=== PATIENT | male | born 1975 | race African-American/Black ===

== ENCOUNTER 2018-01-07 15:21 | Inpatient (IN) | payer SELFPAY ==
--- NOTE | 2018-01-07 16:06 | RAD REPORT ---
EXAM DESCRIPTION: Matthew Single View01/07/2018 4:00 pm CLINICAL HISTORY: sob COMPARISON: none FINDINGS: The lungs appear clear of acute infiltrate. The heart is probably upper limits normal siz e IMPRESSION: No acute abnormalities displayed
--- NOTE | 2018-01-07 16:25 | EKG ---
Test Date: 2018-01-07 Test Time: 15:55:11 Frame Table Operator Helper: JASPER MEASUREMENT RESULTS: Intervals: Rate: 112 OK: 146 QRSD: 84 QT: 302 QTc: 412 [place]: P: 47 OK: 146 QRS: 3 T: 112 INTERPRETIVE STATEMENTS: Sinus tachycardia Possible Left atrial enlargement Left ventricular hypertrophy T wave abnormality, consider lateral ischemia Abnormal ECG Compared to ECG 02/28/2017 10:22:04 Sinus rhythm no longer present T-wave abnormality still present Possible ischemia still present Electronically Signed On 01-07-18 16:24:10 CDT by Antonio Bonner
[2018-01-07 16:29] LABS: Absolute Lymphocytes (CBC) 1.8 K/uL (0.7-4.9); Absolute Monocytes 1.4 K/uL (0.1-1.3); Absolute Neutrophil 15.2 K/uL (1.8-8.0); Basophils % 0.5 % (0-1.3); Eosinophils % 0.5 % (0-4.4); Hematocrit 40.9 % (39.6-49.0); Lymphocytes % 9.8 % (15.3-44.8); MCH 31.9 pg (27.0-35.0); MCV 96.8 fL (80-100); MPV 7.9 fL (7.6-11.3); Monocytes % 7.6 % (3.3-12.3); RBC Red Blood Cell Count 4.23 M/uL (4.33-5.43)
[2018-01-07 16:34] LABS: Protime INR 1.22
--- NOTE | 2018-01-07 16:37 | RAD REPORT ---
EXAM DESCRIPTION: MAYKELExtrelena Venous Uni Ltd3 4:29 pm CLINICAL HISTORY: left leg pain and swelling. COMPARISON: None. FINDINGS: Left common femoral, superficial femoral, popliteal and posterior tibial veins are compre ssible and demonstrate augmentation. Doppler demonstrates good flow. IMPRESSION: No evidence of deep venous thrombosis involving the left lower extremity.
[2018-01-07 16:55] LABS: Bicarbonate 23 mEq/L (21-31); Glucose Level 103 mg/dL (65-120); Potassium 3.3 mEq/L (3.6-5.0); Sodium Level 134 mEq/L (135-145)
[2018-01-07 16:59] LABS: CKMB Creatine Kinase MB 1.8 ng/ml (0.3-4.0)
[2018-01-07 17:02] LABS: ALT/SGPT 19 IU/L (10-60); AST/SGOT 19 IU/L (10-42); Albumin 3.9 g/dL (3.2-5.5); Alkaline Phosphatase 65 IU/L (42-121); BUN Blood Urea Nitrogen 12 mg/dL (6-20); Bilirubin Direct 0.2 mg/dL (0-0.2); Bilirubin Total 1.2 mg/dL (0.3-1.2); Creatine Phosphokinase 109 IU/L (22-269); Magnesium 1.5 mg/dL (1.8-2.5); Protein, Total 7.9 g/dL (6.0-8.3)
[2018-01-07] MEDS ORDERED: NA CHLORIDE 0.9% 1,000 ML ONE (17:06)
[2018-01-07] MEDS ORDERED: PIPER/TAZO/NS 3.375gm 3.375 GM/100 ML BAG IV ONE (17:15)
[2018-01-07] MEDS ORDERED: VANCOMYCIN/NS 1 gm 1 GM/250 ML BAG ONE ×2 (17:21→23:06)
--- NOTE | 2018-01-07 17:27 | EDPHYS ---
Physician Documentation [facility] Name: Tariq Francisco Jr Age: 42 yrs Sex: Male : 1975 Arrival Date: 01/07/2018 Time: 15:28 Bed 8 Private MD: ED Physician Floyd Harvey HPI: 01/07 17:52 This 42 yrs old Black Male presents to ER via Ambulatory with complaints of Left Lower pm1 Leg Swelling. 17:52 The patient presents with cellulitis of the left lower leg, the patient presents with a pm1 swollen area of the left lower leg. Description: erythematous, hot, swollen. Onset: The symptoms/episode began/occurred 3 day(s) ago. Possible cause(s): unknown, history of cellulitis to lower extremities. Reports occurrence 2-3 per year for the past 20 years. Associated signs and symptoms: Pertinent positives: Chills. Subjective fevers, Pertinent negatives: discharge, drainage. Modifying factors: the symptoms are alleviated by nothing, the symptoms are aggravated by nothing. Severity of symptoms: in the emergency department the symptoms are actually worse. The patient has experienced similar episodes in the past, multiple times, and the symptoms today are exactly the same, to previous cellulitis of lower extremities. The patient has been recently seen by a physician: with similar presenting complaints, was given a prescription for pain medications, was given a prescription for antibiotics, Seen at [place] [facility] and prescribed medications at onset of symptoms 3 days ago but he did not get any of the medications filled. Patient presents to the ER with complaints of left lower extremity swelling and pain. Onset 3 days ago with subjective fevers and chills. Patient was seen three days ago at [place] for the same complaint and prescribed medications. He did not fill the medications. Patient reports prior to onset of his cellulitis he gets generalized body aches that typically start in the lower back. Muscle soreness present to neck also.. Historical: - Allergies: 15:29 No Known Allergies; lk1 - PMHx: 15:29 Hypertension; Diabetes - NIDDM; lk1 - PSHx: 15:29 None; lk1 - Immunization history:: Adult Immunizations up to date. - Social history:: Smoking status: Patient uses tobacco products, cigars. ROS: 17:52 Eyes: Negative for injury, pain, redness, and discharge, ENT: Negative for injury, pm1 pain, and discharge, Neck: Negative for injury, pain, and swelling. 17:52 Abdomen/GI: Negative for abdominal pain, nausea, vomiting, diarrhea, and constipation. 17:52 : Negative for injury, bleeding, discharge, and swelling, MS/Extremity: Negative for injury and deformity. 17:52 Neuro: Negative for headache, weakness, numbness, tingling, and seizure. 17:52 Constitutional: Positive for body aches, chills, fever. 17:52 Cardiovascular: Positive for chest pain, with cough, of the mid-sternal area, Negative for palpitations. 17:52 Respiratory: Positive for shortness of breath, occasionally on exertion walking upstairs. None at rest, Negative for cough, sputum production, wheezing. 17:52 Back: Positive for of the low back area, Pain, Negative for injury or acute deformity, decreased range of motion, radiated pain. 17:52 Skin: Positive for erythema, swelling, of the left lower leg, pain. Exam: 17:52 Constitutional: This is a well developed, well nourished patient who is awake, alert, pm1 and in no acute distress. Head/Face: Normocephalic, atraumatic. Eyes: Pupils equal round and reactive to light, extra-ocular motions intact. Lids and lashes normal. Conjunctiva and sclera are non-icteric and not injected. Cornea within normal limits. Periorbital areas with no swelling, redness, or edema. ENT: Nares patent. No nasal discharge, no septal abnormalities noted. Tympanic membranes are normal and external auditory canals are clear. Oropharynx with no redness, swelling, or masses, exudates, or evidence of obstruction, uvula midline. Mucous membranes moist. 17:52 Respiratory: Lungs have equal breath sounds bilaterally, clear to auscultation and percussion. No rales, rhonchi or wheezes noted. No increased work of breathing, no retractions or nasal flaring. Abdomen/GI: Soft, non-tender, with normal bowel sounds. No distension or tympany. No guarding or rebound. No evidence of tenderness throughout. Back: No spinal tenderness. No costovertebral tenderness. Full range of motion. 17:52 MS/ Extremity: Pulses equal, no cyanosis. Neurovascular intact. Full, normal range of motion. 17:52 Neck: External neck: is normal, C-spine: vertebral tenderness, is not appreciated, ROM/movement: is normal, Meningeal signs: are not present, Kernig's sign is negative, Brudzinski's sign is negative, nuchal rigidity, is not appreciated. 17:52 Chest/axilla: Palpation: crepitus, is not appreciated, tenderness, of the mid-sternal area, that totally reproduces the patient's complaints. 17:52 Cardiovascular: Rate: tachycardic, actual rate is 105 bpm, Rhythm: regular, Pulses: no pulse deficits are appreciated, Heart sounds: normal, JVD: is not appreciated. 17:52 Skin: cellulitis, circumferential cellulitis present to left lower extremity from ankle to just below knee. 17:52 Neuro: Orientation: is normal, Mentation: is normal, Motor: moves all fours, Sensation: is normal, no obvious gross deficits. Vital Signs: 15:30 BP 146 / 89; Pulse 112; Resp 16; Temp 100.0(O); Pulse Ox 99% on R/A; Weight 127.01 kg lk1 (R); Height 5 ft. 10 in. (177.80 cm) (R); Pain 8/10; 16:00 BP 151 / 83; Pulse 105; Resp 18 S; Pulse Ox 99% on R/A; Pain 8/10; jl7 16:54 BP 150 / 92; Pulse 100; Resp 20 S; Pulse Ox 100% on R/A; jl7 18:00 BP 133 / 74; Pulse 101; Resp 16; Temp 99.7; Pulse Ox 100% ; jl7 18:49 BP 148 / 92; Pulse 92; Resp 18 S; Pulse Ox 99% on R/A; jl7 19:10 BP 143 / 91; Pulse 91; Resp 18; Pulse Ox 100% on R/A; Pain 0/10; ao 20:20 BP 148 / 85; Pulse 83; Resp 17 S; Pulse Ox 98% on R/A; jd3 15:30 Body Mass Index 40.18 (127.01 kg, 177.80 cm) lk1 MDM: 15:37 Patient medically screened. pm1 17:25 Data reviewed: vital signs. Data interpreted: Pulse oximetry: on room air is 100 %. pm1 Interpretation: normal. Counseling: I had a detailed discussion with the patient and/or guardian regarding: the historical points, exam findings, and any diagnostic results supporting the discharge/admit diagnosis, lab results, radiology results, the need for further work-up and treatment in the hospital. 17:25 Physician consultation: Gabino Nolan MD was called at 17:26, was contacted at 17:26, pm1 regarding admission, patient's condition, and will see patient. 01/07 15:47 Order name: Ckmb; Complete Time: 17:03 pm01/07 15:47 Order name: CPK; Complete Time: 17:03 pm01/07 15:47 Order name: Basic Metabolic Panel; Complete Time: 17:03 pm01/07 15:47 Order name: BNP; Complete Time: 17:03 pm01/07 15:47 Order name: CBC with Diff; Complete Time: 16:43 pm01/07 15:47 Order name: LFT's; Complete Time: 17:03 pm01/07 15:47 Order name: Magnesium; Complete Time: 17:03 pm01/07 15:47 Order name: PT-INR; Complete Time: 16:43 pm01/07 15:47 Order name: Ptt, Activated; Complete Time: 16:43 pm01/07 15:47 Order name: Troponin (emerg Dept Use Only); Complete Time: 17:03 pm01/07 15:47 Order name: XRAY Chest (1 view); Complete Time: 16:28 pm01/07 15:47 Order name: Blood Culture Adult (2) pm01/07 15:48 Order name: Procalcitonin; Complete Time: 17:05 pm01/07 15:48 Order name: Lactate; Complete Time: 17:03 pm01/07 15:47 Order name: EKG; Complete Time: 15:48 pm01/07 15:47 Order name: Cardiac monitoring; Complete Time: 16:17 pm01/07 15:47 Order name: EKG - Nurse/Tech; Complete Time: 16:17 pm01/07 15:47 Order name: IV Saline Lock; Complete Time: 16:18 pm01/07 15:47 Order name: Labs collected and sent; Complete Time: 16:17 pm01/07 15:47 Order name: O2 Per Protocol; Complete Time: 16:17 pm1 01/07 15:47 Order name: O2 Sat Monitoring; Complete Time: 16:17 pm1 01/07 15:47 Order name: US Extremity Venous Uni Ltd; Complete Time: 16:43 pm1 Administered Medications: 16:54 Drug: NS 0.9% 1000 ml Route: IV; Rate: 1000 ml; Site: right antecubital; jl7 20:33 Follow up: Response: No adverse reaction; IV Status: Completed infusion; IV Intake: jd3 1000ml 17:09 Drug: vancoMYCIN 1 grams Route: IVPB; Infused Over: 2 hrs; Site: right antecubital; jl7 19:34 Follow up: Response: No adverse reaction; IV Status: Completed infusion jd3 17:24 Drug: Magnesium Sulfate 1 grams Route: IVPB; Infused Over: 1 hrs; Site: right jl7 antecubital; 18:32 Follow up: Response: No adverse reaction; IV Status: Completed infusion jl7 17:25 Drug: Potassium Effervescent Tablet 50 mEq Route: PO; jl7 18:31 Follow up: Response: No adverse reaction jl7 17:28 Drug: Tetanus-Diphtheria Toxoid Adult 0.5 ml {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 Exp: jl7 05/15/2020. Lot #: [id number]. } Route: IM; Site: right deltoid; 18:31 Follow up: Response: No adverse reaction jl7 18:31 Drug: Tylenol 1000 mg Route: PO; jl7 20:33 Follow up: Response: No adverse reaction jd3 19:36 Drug: Zosyn 3.375 grams Route: IVPB; Infused Over: 60 mins; Site: right antecubital; tl1 20:34 Follow up: Response: No adverse reaction; IV Status: Infusion continued upon admission jd3 Disposition: 01/08 19:02 Co-signature as Attending Physician, Floyd Harvey MD. rn Disposition: 01/07/18 17:26 Hospitalization ordered by Gabino Nolan for Inpatient Admission. Preliminary diagnosis is Cellulitis of left lower limb. - Bed requested for Telemetry/MedSurg (Inpatient). - Status is Inpatient Admission. ao - Condition is Stable. - Problem is new. - Symptoms have improved. UTI on Admission? No Signatures: Dispatcher [employer] EDKS Rafael Monson rg2 Floyd Harvey MD MD rn Lasagna, Tonya, RN RN tl1 Flaquita Dash, RN RN lk1 Andrés, Ramón, RN RN García Smith, VIOLENT CRIMES DETECTIVE VIOLENT CRIMES DETECTIVE pm1 Louis Blanton, RN RN jl7 Rod Lewis RN jd3
--- NOTE | 2018-01-07 17:27 | ER ---
Nurse's Notes [facility] Name: Tariq Francisco Jr Age: 42 yrs Sex: Male : 1975 Arrival Date: 01/07/2018 Time: 15:28 Bed 8 Private MD: Diagnosis: Cellulitis of left lower limb Presentation: 01/07 15:28 Presenting complaint: Patient states: "I am having lower back pain and my left leg is lk1 swelling up. My neck hurts when I turn to the left. This happens periodically and I have a constant headache.". Transition of care: patient was not received from another setting of care. Onset of symptoms was January 05, 2018. Care prior to arrival: None. 15:28 Method Of Arrival: Ambulatory lk1 15:28 Acuity: MIKE 3 lk1 15:30 Note "I went to the ER 2 days ago and they gave me pain pills, but I have been in too lk1 much pain to go get them.". Triage Assessment: 15:30 General: Appears in no apparent distress. Behavior is calm, cooperative, appropriate lk1 for age. Pain: Complains of pain in back, left leg and neck Pain currently is 8 out of 10 on a pain scale. Historical: - Allergies: 15:29 No Known Allergies; lk1 - PMHx: 15:29 Hypertension; Diabetes - NIDDM; lk1 - PSHx: 15:29 None; lk1 - Immunization history:: Adult Immunizations up to date. - Social history:: Smoking status: Patient uses tobacco products, cigars. Screenin:00 Abuse screen: Denies threats or abuse. Denies injuries from another. Nutritional jl7 screening: No deficits noted. Tuberculosis screening: No symptoms or risk factors identified. Fall Risk IV access (20 points). Total Owens Fall Scale indicates No Risk (0-24 pts). Assessment: 16:00 General: Appears in no apparent distress. uncomfortable, Behavior is calm, cooperative, jl7 appropriate for age. Pain: Complains of pain in neck and left leg and back Pain does not radiate. Pain currently is 8 out of 10 on a pain scale. Neuro: Level of Consciousness is awake, alert, obeys commands, Oriented to person, place, time, situation. Cardiovascular: Heart tones S1 S2 present Patient's skin is warm and dry. Respiratory: Airway is patent Respiratory effort is even, unlabored, Respiratory pattern is regular, symmetrical, Breath sounds are clear bilaterally. GI: No signs and/or symptoms were reported involving the gastrointestinal system. : No signs and/or symptoms were reported regarding the genitourinary system. Derm: Skin is dry, Skin is normal, Skin temperature is warm. Musculoskeletal: Swelling present in LLE Tenderness present in LLE. 16:45 Reassessment: Provider at bedside discussing plan of care. jl7 17:45 Reassessment: No changes from previously documented assessment. Patient and/or family jl7 updated on plan of care and expected duration. Pain level reassessed. Patient is alert, oriented x 3, equal unlabored respirations, skin warm/dry/pink. 18:45 Reassessment: Patient and/or family updated on plan of care and expected duration. Pain jl7 level reassessed. Patient is alert, oriented x 3, equal unlabored respirations, skin warm/dry/pink. 19:10 General: Appears in no apparent distress. comfortable, Behavior is calm, cooperative, ao appropriate for age. 19:10 Pain: Complains of pain in back Pain currently is 6 out of 10 on a pain scale. Neuro: ao Level of Consciousness is awake, alert, obeys commands, Oriented to person, place, time, situation. Cardiovascular: Heart tones S1 S2 present Capillary refill < 3 seconds Patient's skin is warm and dry. Respiratory: Airway is patent Respiratory effort is even, labored, Respiratory pattern is regular, symmetrical, Breath sounds are clear bilaterally. GI: Abdomen is non-distended. : No signs and/or symptoms were reported regarding the genitourinary system. EENT: No signs and/or symptoms were reported regarding the EENT system. Derm: Skin is dry, Skin is normal, Skin temperature is warm. Musculoskeletal: Swelling present in left leg. 20:32 Reassessment: No changes from previously documented assessment. Patient and/or family jd3 updated on plan of care and expected duration. Pain level reassessed. Patient is alert, oriented x 3, equal unlabored respirations, skin warm/dry/pink. Vital Signs: 15:30 BP 146 / 89; Pulse 112; Resp 16; Temp 100.0(O); Pulse Ox 99% on R/A; Weight 127.01 kg lk1 (R); Height 5 ft. 10 in. (177.80 cm) (R); Pain 8/10; 16:00 BP 151 / 83; Pulse 105; Resp 18 S; Pulse Ox 99% on R/A; Pain 8/10; jl7 16:54 BP 150 / 92; Pulse 100; Resp 20 S; Pulse Ox 100% on R/A; jl7 18:00 BP 133 / 74; Pulse 101; Resp 16; Temp 99.7; Pulse Ox 100% ; jl7 18:49 BP 148 / 92; Pulse 92; Resp 18 S; Pulse Ox 99% on R/A; jl7 19:10 BP 143 / 91; Pulse 91; Resp 18; Pulse Ox 100% on R/A; Pain 0/10; ao 20:20 BP 148 / 85; Pulse 83; Resp 17 S; Pulse Ox 98% on R/A; jd3 15:30 Body Mass Index 40.18 (127.01 kg, 177.80 cm) lk1 ED Course: 15:28 Patient arrived in ED. lk1 15:29 Triage completed. lk1 15:32 Arm band placed on right wrist. lk1 15:37 García Muniz NP is PHCP. pm1 15:37 Floyd Harvey MD is Attending Physician. pm1 15:51 Louis Blanton RN is Primary Nurse. jl7 15:57 X-ray completed. Portable x-ray completed in exam room. Patient tolerated procedure bb2 well. 15:58 XRAY Chest (1 view) In Process Unspecified. EDMS 16:00 Patient has correct armband on for positive identification. Placed in gown. Bed in low jl7 position. Call light in reach. Side rails up X 1. steel pourer helper on. Pulse ox on. NIBP on. Warm blanket given. 16:00 Initial lab(s) drawn, by me, sent to lab. First set of blood cultures drawn. Inserted jl7 saline lock: 20 gauge in right antecubital area, using aseptic technique. Blood collected. 16:03 EKG done, by non morse intercept technician. reviewed by García Muniz NP. at1 16:15 Second set of blood cultures drawn by me. jl7 16:29 Ultrasound completed. Patient tolerated well. lc3 16:29 US Extremity Venous Uni Ltd In Process Unspecified. EDMS 17:26 Gabino Nolan MD is Hospitalizing Provider. pm1 19:02 Report given to BRYAN Melgar. jl7 19:48 Primary Nurse role handed off by Louis Blanton RN rg2 20:32 No provider procedures requiring assistance completed. Patient admitted, IV remains in jd3 place. 20:38 Ramón Bowen RN is Primary Nurse. ao Administered Medications: 16:54 Drug: NS 0.9% 1000 ml Route: IV; Rate: 1000 ml; Site: right antecubital; jl7 20:33 Follow up: Response: No adverse reaction; IV Status: Completed infusion; IV Intake: jd3 1000ml 17:09 Drug: vancoMYCIN 1 grams Route: IVPB; Infused Over: 2 hrs; Site: right antecubital; jl7 19:34 Follow up: Response: No adverse reaction; IV Status: Completed infusion jd3 17:24 Drug: Magnesium Sulfate 1 grams Route: IVPB; Infused Over: 1 hrs; Site: right jl7 antecubital; 18:32 Follow up: Response: No adverse reaction; IV Status: Completed infusion jl7 17:25 Drug: Potassium Effervescent Tablet 50 mEq Route: PO; jl7 18:31 Follow up: Response: No adverse reaction jl7 17:28 Drug: Tetanus-Diphtheria Toxoid Adult 0.5 ml {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 Exp: jl7 05/15/2020. Lot #: [id number]. } Route: IM; Site: right deltoid; 18:31 Follow up: Response: No adverse reaction jl7 18:31 Drug: Tylenol 1000 mg Route: PO; jl7 20:33 Follow up: Response: No adverse reaction jd3 19:36 Drug: Zosyn 3.375 grams Route: IVPB; Infused Over: 60 mins; Site: right antecubital; tl1 20:34 Follow up: Response: No adverse reaction; IV Status: Infusion continued upon admission jd3 Intake: 20:33 IV: 1000ml; Total: 1000ml. jd3 Outcome: 17:26 Decision to Hospitalize by Provider. pm1 20:32 Admitted to Med/surg accompanied by nurse, via wheelchair, room 220, with chart, Report jd3 called to Maki ADAMS 20:32 Condition: stable 20:32 Instructed on the need for admit, Demonstrated understanding of instructions. 20:41 Patient left the ED. ao Signatures: Dispatcher [employer] EDRafael Greenfield rg2 Jocelyn perry, gas cutting machine operator EKG Tat1 Zoe Smith, RN RN tl1 Panchito Maldonado Leah, RN RN lk1 Ramón Bowen, RN RN García Smith, FIELD PRODUCER FIELD PRODUCER pm1 Louis Blanton RN RN jl7 Rod Lewis RN RN jd3 Anjali Vaz 2
[2018-01-07] MEDS ORDERED: MAGNESIUM SULFATE 1 gm IVPB 1 GM/100 ML BAG IV ONE (17:37)
[2018-01-07] MEDS ORDERED: POTASSIUM 25 MEQ EFFERV TAB ONE (17:37)
[2018-01-07] MEDS ORDERED: TETANUS & DIPHTHERIA TOX,ADULT 0.5 ML VIAL ONE (17:38)
[2018-01-07] MEDS ORDERED: ACETAMINOPHEN 500 MG TAB ONE (18:47)
[2018-01-07] MEDS ORDERED: VANCOMYCIN 1GM/D5W 1 GM/200 ML BAG IV ONE (20:00)
[2018-01-07] MEDS ORDERED: MORPHINE 4 MG/ML SYR IV PRN (20:10)
[2018-01-07] MEDS ORDERED: ONDANSETRON 4 MG/2 ML VIAL IV PRN (20:10)
[2018-01-07] MEDS ORDERED: ACETAMINOPHEN 500 MG TAB PO PRN (20:10)
[2018-01-07] MEDS ORDERED: [UNRECOGNIZED DRUG - OTHER] IV SCH (21:00)
[2018-01-07] MEDS ORDERED: VANCOMYCIN IV SCH (21:00)
[2018-01-07] MEDS: NA CHLORIDE 0.9% 1,000 ML IV SCH (21:18)
[2018-01-07] MEDS ORDERED: PIPERACIL/TAZO 3.375 GM VIAL IV ONE (23:31)
[2018-01-07] MEDS: PIPER/TAZO/NS 3.375gm 3.375 GM/100 ML BAG IVPB SCH (23:57)
[2018-01-08] MEDS ORDERED: NA CHLORIDE 0.9% 100 ML ONE ×2 (00:07→04:54)
[2018-01-08] MEDS: NA CHLORIDE 0.9% 1,000 ML IV SCH (05:24)
[2018-01-08] MEDS: PIPER/TAZO/NS 3.375gm 3.375 GM/100 ML BAG IVPB SCH (05:25)
--- NOTE | 2018-01-08 06:50 | P.HP ---
Certification for Inpatient Patient admitted to: Inpatient With expected LOS: >2 Midnights Patient will require the following post-hospital care: None Practitioner: I am a practitioner with admitting privileges, knowledge of patient current condition, hospital course, and medical plan of care. Services: Services provided to patient in accordance with Admission requirements found in Title 42 Section 412.3 of the Code of Federal Regulations Patient History Date of Service: 01/07/18 Reason for admission: left lower extremity cellulitis History of Present Illness: Patient is a 42yo with a history diabetes mellitus type 2, who was admitted to the hospital with left lower extremity cellulitis. Patient has been having pain for the last few days and was treated for outpatient antibiotics. Patient has not been improving. Patient came into the hospital for further evaluation. In the emergency room patient had significant edema and cellulitis of the left lower extremity. He was started on IV antibiotics. Patient be admitted for further treatment at this time. Spoke with patient and he wants to go home in the next 24 hr he wants to get back to work. I did tell him that it is missed on the improvement of the cellulitis. He appears to have tinea pedis as well. We will use Nizoral ointment for this. Allergies No Known Allergies Allergy (Verified 01/07/18 20:55) Home Medications: Aspirin [Aspirin EC 81 MG] 81 mg PO DAILY #90 tablet. 03/01/17 Amlodipine Besylate [Amlodipine Besylate] 10 mg PO BEDTIME 01/07/18 Lisinopril [Prinivil*] 20 mg PO DAILY 01/07/18 Metformin HCl [Metformin HCl] 500 mg PO BID 01/07/18 - Past Medical/Surgical History Has patient received pneumonia vaccine in the past: No Diabetic: No -: Hypertension -: Obstructive sleep apnea -: History of cellulitis with debridement -: Tobacco abuse -: I/D to the right lower extremity Psychosocial/ Personal History: The patient has a girlfriend. He has 2 children. 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 - Family History Father Medical History: Hypertension Mother Medical History: Heart disease Notes: irregular heart beat - Social History Smoking Status: Current every day smoker Alcohol use: Yes CD- Drugs: No Caffeine use: No Place of Residence: Home Review of Systems 10-point ROS is otherwise unremarkable Physical Examination - Vital Signs Temperature: 97.9 F Blood Pressure: 129/73 Pulse: 80 Respirations: 18 Pulse Ox (%): 95 - Physical Exam General: Alert, In no apparent distress, Oriented x3 HEENT: Atraumatic, PERRLA, Mucous membr. moist/pink, EOMI, Sclerae nonicteric Neck: Supple, 2+ carotid pulse no bruit, No LAD, Without JVD or thyroid abnormality Respiratory: Clear to auscultation bilaterally, Normal air movement Cardiovascular: Regular rate/rhythm, Normal S1 S2, No murmurs Gastrointestinal: Normal bowel sounds, Soft and benign, Non-distended, No tenderness, No rebound, No guarding Musculoskeletal: Swelling, Erythema, Tenderness Integumentary: Tenderness/swelling, Erythema Neurological: Normal gait, Normal speech, Normal strength at 5/5 x4 extr, Normal tone, Sensation intact, Cranial nerves 3-12 intact, Normal affect Lymphatics: No axilla or inguinal lymphadenopathy - Studies Laboratory Data (last 24 hrs) 01/07/18 16:00: PT 14.4 H, INR 1.22, APTT 29.8 01/07/18 16:00: WBC 18.6 H, Hgb 13.5 L, Hct 40.9, Plt Count 255 01/07/18 16:00: B-Natriuretic Peptide 67 01/07/18 16:00: Sodium 134 L, Potassium 3.3 L, BUN 12, Creatinine 0.96, Glucose 103, Magnesium 1.5 L, Total Bilirubin 1.2, AST 19, ALT 19, Alkaline Phosphatase 65 Assessment & Plan - Problems (Diagnosis) (1) Cellulitis Onset Date: 02/28/17 Current Visit: No Status: Acute Qualifiers: Site of cellulitis: extremity Site of cellulitis of extremity: lower extremity Laterality: right Qualified Code(s): L03.115 - Cellulitis of right lower limb (2) Hypomagnesemia Onset Date: 02/28/17 Current Visit: No Status: Acute (3) Left ventricular hypertrophy Current Visit: No Status: Acute (4) Hypertension Onset Date: 02/28/17 Current Visit: No Status: Chronic Qualifiers: Hypertension type: essential hypertension Qualified Code(s): I10 - Essential (primary) hypertension (5) Obstructive sleep apnea Onset Date: 02/28/17 Current Visit: No Status: Chronic (6) Tobacco abuse Onset Date: 02/28/17 Current Visit: No Status: Chronic (7) Venous insufficiency Current Visit: No Status: Suspected (8) Tinea pedis Current Visit: Yes Status: Acute - Plan 1. Continue with IV antibiotic 2. Continue with foot care for tinea Pedis 3. At this time no need for surgical intervention 4. Gentle IV hydration 5. Monitor CBC 6. Strict blood sugar monitoring 7. Pain control 8. GI and DVT prophylaxis - Advance Directives Does patient have a Living Will: No Does patient have a Durable POA for Healthcare: No - Code Status/Comfort Care Code Status Assessed: Yes Code Status: Full Code Critical Care: No Time Spent Managing PTS Care (In Minutes): 50
[2018-01-08 06:56] LABS: BUN Blood Urea Nitrogen 11 mg/dL (6-20); Bicarbonate 26 mEq/L (21-31); Glucose Level 126 mg/dL (65-120); Potassium 3.8 mEq/L (3.6-5.0); Sodium Level 137 mEq/L (135-145)
[2018-01-08 07:11] LABS: Absolute Lymphocytes (CBC) 1.3 K/uL (0.7-4.9); Absolute Monocytes 1.3 K/uL (0.1-1.3); Absolute Neutrophil 8.7 K/uL (1.8-8.0); Basophils % 0.5 % (0-1.3); Eosinophils % 1.4 % (0-4.4); Hematocrit 35.7 % (39.6-49.0); MCV 97.3 fL (80-100); Monocytes % 11.1 % (3.3-12.3); RBC Red Blood Cell Count 3.67 M/uL (4.33-5.43)
[2018-01-08] MEDS ORDERED: VANCOMYCIN 2 GM in NA CHLORIDE 0.9% 500 ML IVPB SCH (09:00)
[2018-01-08] MEDS ORDERED: ASPIRIN EC 81 MG TAB PO SCH (09:00)
[2018-01-08] MEDS ORDERED: VANCOMYCIN IV SCH (09:00)
[2018-01-08] MEDS ORDERED: PIPER/TAZO/NS 3.375gm 3.375 GM/100 ML BAG IVPB SCH (09:00)
[2018-01-08] MEDS ORDERED: [UNRECOGNIZED DRUG - OTHER] IV SCH (09:00)
[2018-01-08] MEDS ORDERED: KETOCONAZOLE CREAM 15 GM TUBE TOP SCH (09:00)
[2018-01-08] MEDS ORDERED: LISINOPRIL 20 MG TAB PO SCH (09:00)
[2018-01-08] MEDS ORDERED: METFORMIN HCL 500 MG TAB PO SCH (09:00)
[2018-01-08] MEDS ORDERED: D50W 25 GM/50 ML SYRINGE IV PRN (09:56)
[2018-01-08] MEDS ORDERED: GLUCAGON 1 MG/VIAL IM PRN (09:56)
[2018-01-08] MEDS ORDERED: INSULIN -REGULAR HUMAN 50 UNIT/0.5 ML ML SQ SCH (11:30)
--- NOTE | 2018-01-08 15:41 | P.DS ---
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: with academic computing director use Diabetes mellitus complication status: with skin complications Diabetes mellitus complication detail: with other skin complication Qualified Code(s): E11.628 - Type 2 diabetes mellitus with other skin complications; Z79.4 - skilled nursing ( current) use of insulin; Z79.4 - skilled nursing (current) use of insulin; 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 Patient has been having pain for the last few days and was treated for outpatient antibiotics. Patient has not been improving. Patient came into the hospital for further evaluation. In the emergency room patient had significant edema and cellulitis of the left lower extremity. He was started on IV antibiotics. Patient be admitted for further treatment at this time. Spoke with patient and he wants to go home in the next 24 hr he wants to get back to work. I did tell him that it is missed on the improvement of the cellulitis. He appears to have tinea pedis as well. We will use Nizoral ointment for this. Hospital Course: The patient admitted hospital on anti was treated with intravenous antibiotics of vancomycin Zosyn for a night and the patient feel much better and this morning he has less edema and erythema to the left lower extremity. The patient had no fever. The patient want to go home. The patient is going to be discharged home on oral antibiotics Bactrim and docs so for 2 weeks with a follow with PCP Vital Signs/Physical Exam: Temp Pulse Resp BP Pulse Ox 97.9 F 80 18 129/73 95 01/08/18 08:08 01/08/18 08:08 01/08/18 08:08 01/08/18 08:08 01/08/18 08:08 General: Alert, In no apparent distress HEENT: Atraumatic, PERRLA, EOMI Neck: Supple, JVD not distended Respiratory: Clear to auscultation bilaterally, Normal air movement Cardiovascular: Regular rate/rhythm, Normal S1 S2 Gastrointestinal: Normal bowel sounds, No tenderness Musculoskeletal: No tenderness Integumentary: No rashes Neurological: Normal speech, Normal tone, Normal affect Lymphatics: No axilla or inguinal lymphadenopathy Laboratory Data at Discharge: WBC 11.4 K/uL (4.3-10.9) H D 01/08/18 06:26 Hgb 12.1 g/dL (13.6-17.9) L 01/08/18 06:26 Hct 35.7 % (39.6-49.0) L 01/08/18 06:26 Plt Count 230 K/uL (152-406) 01/08/18 06:26 PT 14.4 SECONDS (9.5-12.5) H 01/07/18 16:00 INR 1.22 01/07/18 16:00 APTT 29.8 SECONDS (24.3-36.9) 01/07/18 16:00 Sodium 137 mEq/L (135-145) 01/08/18 06:26 Potassium 3.8 mEq/L (3.6-5.0) 01/08/18 06:26 BUN 11 mg/dL (6-20) 01/08/18 06:26 Creatinine 0.87 mg/dL (0.61-1.24) 01/08/18 06:26 Glucose 126 mg/dL (65-120) H 01/08/18 06:26 Magnesium 1.5 mg/dL (1.8-2.5) L 01/07/18 16:00 Total Bilirubin 1.2 mg/dL (0.3-1.2) 01/07/18 16:00 AST 19 IU/L (10-42) 01/07/18 16:00 ALT 19 IU/L (10-60) 01/07/18 16:00 Alkaline Phosphatase 65 IU/L (42-121) 01/07/18 16:00 B-Natriuretic Peptide 67 pg/ml (<=100) 01/07/18 16:00 Home Medications: Aspirin [Aspirin EC 81 MG] 81 mg PO DAILY #90 tablet. 03/01/17 Amlodipine Besylate 10 mg PO BEDTIME 01/07/18 Lisinopril [Prinivil*] 20 mg PO DAILY 01/07/18 Metformin HCl 500 mg PO BID 01/07/18 Doxycycline Monohydrate 100 mg PO BID #28 capsule 01/08/18 Smz./Tmp. [Bactrim Ds 800 MG/160 MG*] 1 tab PO BID #28 tab 01/08/18 New Medications: Doxycycline Monohydrate 100 mg PO BID #28 capsule Smz./Tmp. [Bactrim Ds 800 MG/160 MG*] 1 tab PO BID #28 tab Diet: ADA Activity: Ad milind Time spent managing pt's care (in minutes): 35
[2018-01-08] MEDS ORDERED: AMLODIPINE 10 MG TAB PO SCH (21:00)
== END 2018-01-08 13:00 | disposition home or self-care (01) | DRG 603 ==
LOC: ER 15:21 → ERHOLD 17:30 → 2ND 20:04
PROVIDERS: ADMIT Internal Medicine Hematology & Oncology; ATTEND Hospitalist
DX: L03.116 Cellulitis of left lower limb (principal); E11.9 Type 2 diabetes mellitus without complications; I51.7 Cardiomegaly; I10 Essential (primary) hypertension; G47.33 Obstructive sleep apnea (adult) (pediatric); I87.2 Venous insufficiency (chronic) (peripheral); E83.42 Hypomagnesemia; B35.3 Tinea pedis; Z79.82 Long term (current) use of aspirin; F17.210 Nicotine dependence, cigarettes, uncomplicated
CPT/HCPCS: 36415; 71045; 80048; 80076; 82550; 82553; 83605; 83735; 83880; 84145; 84484; 85025; 85610; 85730; 87040; 90714; 93005; 93971; 96365; 96367; 99285; J2543; J3370; J3475; J7030